=== PATIENT | male | born 1975 | race African-American/Black ===

== ENCOUNTER 2019-12-16 20:15 | Emergency (ER) | payer OTHER ==
[2019-12-16] MEDS ORDERED: KETOROLAC TROMETHAMINE 60 MG/2 ML SDV IM ONE (20:39)
--- NOTE | 2019-12-16 20:43 | ER Document Report ---
ED Medical Screen (RME) - General Chief Complaint: Hip Pain Stated Complaint: HIP PAIN Time Seen by Provider: 12/16/19 20:34 TRAVEL OUTSIDE OF THE [place] IN LAST 30 DAYS: No - HPI Notes: 12/16/19 20:41 HPI: 44-year-old male presenting to the emergency department complaining of left hip and groin pain following a vasectomy 4 days ago. Patient had no complications from this vasectomy denies penile or testicular pain denies difficulty with urination. Patient complains of pain into the left inguinal and left hip region especially with sitting down. States that movement does seem to make it slightly better. No fever I have greeted and performed a rapid initial assessment of this patient. A comprehensive ED assessment and evaluation of the patient, analysis of test results and completion of the medical decision making process will be conducted by additional ED providers PHYSICAL EXAMINATION: GENERAL: Well-appearing, well-nourished and in no acute distress. HEAD: Atraumatic, normocephalic. EYES: sclera anicteric, conjunctiva are normal. ENT: Moist mucous membranes. NECK: Normal range of motion LUNGS: Normal work of breathing HEART: 2+ radial pulses bilaterally ABD: limited by positioning for exam in triage. No significant reproducible tenderness in the left inguinal region no visible or palpable hernia EXTREMITIES: no pitting or edema. No cyanosis. No reproducible pain on palpati on of the left hip girdle NEUROLOGICAL: No focal neurological deficits. Moves all extremities spontaneously and on command. PSYCH: Normal mood, normal affect. SKIN: Warm, Dry, normal turgor, no rashes or lesions noted. Discussed with Dr. Toney Past Medical History - Social History Chew tobacco use (# tins/day): No Frequency of alcohol use: Rare Drug Abuse: Marijuana Physical Exam - Vital signs Vitals: Temp Pulse Resp BP Pulse Ox 97.6 F 74 16 111/72 98 12/16/19 20:28 12/16/19 20:28 12/16/19 20:12/16/19 20:12/16/19 20:28 Course - Vital Signs Vital signs: Temp Pulse Resp BP Pulse Ox 97.6 F 74 16 111/72 98 12/16/19 20:28 12/16/19 20:28 12/16/19 20:28 12/16/19 20:12/16/19 20:28
[2019-12-16 21:05] LABS: APPEARANCE,URINE CLEAR; BILIRUBIN,URINE NEGATIVE (NEGATIVE); COLOR,URINE YELLOW; GLUCOSE, URINE NEGATIVE (NEGATIVE); KETONES,URINE NEGATIVE (NEGATIVE); LEUKOCYTE ESTERASE,URINE NEGATIVE (NEGATIVE); NITRITE,URINE NEGATIVE (NEGATIVE); PROTEIN,URINE 30 mg/dL (NEGATIVE); URINE SPECIFIC GRAVITY 1.036
--- NOTE | 2019-12-16 22:51 | RADIOLOGY REPORT (SQ) ---
TESTICULAR ULTRASOUND: 12/16/2019 9:48 PM [facility] [employer] HISTORY: 44-year old patient with recent vasectomy, left inguinal hematoma. COMPARISON: None available TECHNIQUE: Multiple longitudinal and transverse sonographic images were obtained of the right and left testicle. Color and spectral doppler images were obtained of the testicular vasculature. FINDINGS: Both testicles appear homogenous without evidence of a mass. Bilateral varicoceles are seen. Punctate calcifications are seen at both testicles consistent with microlithiasis. There is trace fluid seen around both testicles. 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 The left testicle appears normal in size, and it measures 3.3 x 2.0 x 3.0 cm. The left testicle appears homogeneous in echotexture and demonstrates arterial blood flow within the testicle. The left epididymal head appears normal in size and does not appear hyperemic. No gross abnormality seen at the left inguinal canal. The right testicle appears normal in size, and it measures 4.4 x 2.4 x 3.2 cm. The right testicle appears homogeneous in echotexture and demonstrates good arterial blood flow within the testicle. The right epididymal head appears normal in size and does not appear hyperemic. There is a small epididymal head cyst or spermatocele measuring up to 2 mm. There is a small amount of free fluid seen around the right testicle. IMPRESSION: 1. No evidence is seen to suggest testicular torsion. 2. No intratesticular mass is seen. 3. There are small bilateral varicoceles present.
[2019-12-16 23:02] LABS: ABSOLUTE EOSINOPHILS # (AUTO) 0.1 10^3/uL (0.0-0.6); ABSOLUTE LYMPHOCYTES (AUTO) 1.9 10^3/uL (0.5-4.7); ABSOLUTE MONOCYTES (AUTO) 0.3 10^3/uL (0.1-1.4); ABSOLUTE NEUT (AUTO) 1.9 10^3/uL (1.7-8.2); BASOPHILS % (AUTO) 0.7 % (0-2); EOSINOPHILS % (AUTO) 2.8 % (0-6); HEMATOCRIT 33.7 % (37.9-51.0); HEMOGLOBIN 11.6 g/dL (13.5-17.0); LYMPHOCYTES % (AUTO) 44.4 % (13-45); MEAN CORPUSCULAR HEMOGLOBIN 33.1 pg (27.0-33.4); MEAN CORPUSCULAR HGB CONC 34.2 g/dL (32.0-36.0); MEAN CORPUSCULAR VOLUME 97 fl (80-97); MONOCYTES % (AUTO) 7.4 % (3-13); PLATELET COUNT 205 10^3/uL (150-450); RED BLOOD COUNT 3.49 10^6/uL (4.35-5.55); RED CELL DISTRIBUTION WIDTH 14.7 % (11.5-14.0); SEGMENTED NEUTROPHILS % (AUTO) 44.7 % (42-78); TOTAL CELLS COUNTED % (AUTO) 100 %; WHITE BLOOD COUNT 4.2 10^3/uL (4.0-10.5)
[2019-12-16 23:26] LABS: ALBUMIN 3.7 g/dL (3.5-5.0); ALKALINE PHOSPHATASE 42 U/L (38-126); ANION GAP 5 (5-19); ASPARTATE AMINO TRANSFERASE 44 U/L (17-59); BILIRUBIN,DIRECT 0.3 mg/dL (0.0-0.4); BILIRUBIN,TOTAL 0.3 mg/dL (0.2-1.3); BLOOD UREA NITROGEN 17 mg/dL (7-20); CALCIUM 8.7 mg/dL (8.4-10.2); CARBON DIOXIDE 32 mmol/L (22-30); CHLORIDE 106 mmol/L (98-107); GLUCOSE 81 mg/dL (75-110); POTASSIUM 4.6 mmol/L (3.6-5.0); TOTAL PROTEIN 6.5 g/dL (6.3-8.2)
--- NOTE | 2019-12-16 23:32 | RADIOLOGY REPORT (SQ) ---
EXAM DESCRIPTION: XR HIP 2 OR MORE VIEWS COMPLETED DATE/TME: 12/16/2019 22:37 CLINICAL HISTORY: 44 years, Male, left hip pain COMPARISON: None. NUMBER OF VIEWS: 2 TECHNIQUE: LIMITATIONS: None. FINDINGS: No acute displaced fracture of the left hip. Alignment is anatomic. Joint spaces within normal limits for age. Surrounding soft tissues are unremarkable IMPRESSION: No acute bony injury is seen to the left hip copyright 2011 [employer]- All Rights Reserved
[2019-12-16 23:40] LABS: ERYTHROCYTE SEDIMENTATION RATE 10 mm/hr (0-15)
[2019-12-17] MEDS ORDERED: HYDROCODONE/ACETAMINOPHEN 5-325 MG TABLET PO ONE (01:02)
[2019-12-17] MEDS ORDERED: HYDROCODONE/ACETAMINOPHEN 5-325 MG (6 TAB/ER DISP) PO PRN (01:02)
[2019-12-17] MEDS ORDERED: PREDNISONE 20 MG TABLET PO ONE (01:02)
--- NOTE | 2019-12-17 01:07 | ER Document Report ---
Entered by NADEGE PADILLA SCRIBE 12/16/19 2221 Acting as scribe for:DOUG DOOLEY IV, MD ED General - General Chief Complaint: Hip Pain Stated Complaint: HIP PAIN Time Seen by Provider: 12/16/19 20:34 Primary Care Provider: ANNI,IRASEMA [Primary Care Provider] - Follow up as needed Mode of Arrival: Ambulatory Information source: Patient Notes: This 44 year old male patient with no significant past medical history presents to the ED today with complaints of left hip pain that started x1.5 days ago. Patient states that the pain comes and goes every x15 minutes and is worse when he is sitting up at a 90 degree angle and that it "feels like an inner pain...in my pocket almost at the ballpoint of the hip". Patient states that the shot of medication he received here provided mild relief. Patient denies any radiation down the back of the legs or to the back. Patient denies history of left hip pain in the past, but states that he has had right hip discomfort x2 times/year for the past couple of years. Patient states that his job requires heavy lifting everyday. Patient reports that he had a vasectomy x3 days ago. Patient denies testicular pain, penile pain, dysuria, fever, chills, or history of sickle cell anemia. TRAVEL OUTSIDE OF THE [place] IN LAST 30 DAYS: No - Related Data Allergies/Adverse Reactions: No Known Allergies Allergy (Unverified 12/16/19 21:03) Past Medical History - General Information source: Patient - Social History Smoking Status: Current Every Day Smoker Cigarette use (# per day): Yes Chew tobacco use (# tins/day): No Smoking Education Provided: No Frequency of alcohol use: Rare Drug Abuse: Marijuana Family History: Reviewed & Not Pertinent Patient has suicidal ideation: No Patient has homicidal ideation: No Review of Systems - Review of Systems Constitutional: See HPI. denies: Chills, Fever EENT: No symptoms reported Cardiovascular: No symptoms reported Respiratory: No symptoms reported Gastrointestinal: No symptoms reported Genitourinary: See HPI. denies: Dysuria Male Genitourinary: See HPI, Other - No penile pain.. denies: Testicular pain Musculoskeletal: See HPI, Joint pain - Left hip Skin: No symptoms reported Hematologic/Lymphatic: No symptoms reported Neurological/Psychological: No symptoms reported -: Yes All other systems reviewed and negative Physical Exam - Vital signs Vitals: Temp Pulse Resp BP Pulse Ox 97.6 F 74 16 111/72 98 12/16/19 20:28 12/16/19 20:28 12/16/19 20:28 12/16/19 20:28 12/16/19 20:28 Interpretation: Normal - General General appearance: Appears well, Alert - HEENT Head: Normocephalic, Atraumatic Eyes: Normal Pupils: PERRL - Respiratory Respiratory status: No respiratory distress Chest status: Nontender Breath sounds: Normal Chest palpation: Normal - Cardiovascular Rhythm: Regular Heart sounds: Normal auscultation Murmur: No Friction rub: No Gallop: None auscultated - Abdominal Inspection: Normal Distension: No distension Bowel sounds: Normal Tenderness: Nontender - Abdomen soft Organomegaly: No organomegaly - Genitourinary Tenderness: Nontender Scrotum: Normal, Other - No ecchymosis.. No: Swelling, Redness Notes: Surgical incision sites post-vasectomy noted. Well healed. - Back Back: Normal, Nontender - Extremities General upper extremity: Normal inspection General lower extremity: Normal inspection, Other - 2+ posterior tibialis pulses bilaterally. Negative straight leg raise bilaterally. Hip: Other - No pulsatile masses. No femoral bruits. Full passive ROM of hip joint that does not reproduce the pain. Patient reports pain when he goes from a supine position to sittting. - Neurological Neuro grossly intact: Yes - Psychological Associated symptoms: Normal affect, Normal mood - Skin Skin Temperature: Warm Skin Moisture: Dry Skin Color: Normal Course - Re-evaluation Re-evalutation: 12/17/19 01:03 Results of ED MSE discussed with patient. All questions were answered prior to discharge. Emergency signs and symptoms, reasons to return to the emergency department discussed with patient. - Vital Signs Vital signs: Temp Pulse Resp BP Pulse Ox 97.5 F 55 L 16 141/86 H 100 12/17/19 01:31 12/17/19 01:31 12/17/19 01:31 12/17/19 01:31 12/17/19 01:31 - Laboratory Result Diagrams: 12/16/19 22:55 12/16/19 22:55 Laboratory results interpreted by me: 12/16/19 12/16/19 12/16/19 20:48 22:55 22:55 RBC 3.49 L Hgb 11.6 L Hct 33.7 L RDW 14.7 H Carbon Dioxide 32 H Urine Protein 30 H Urine Urobilinogen 2.0 H Discharge - Discharge Clinical Impression: Left hip pain Condition: Good Disposition: HOME, SELF-CARE Additional Instructions: Return to the Emergency Department without delay if any worse. HOME CARE INSTRUCTIONS & INFORMATION: Thank you for choosing us for your medical needs. We hope you're satisfied with the care you received. After you leave, you must properly care for your problem and, at the same time, observe its progress. Any condition can change. Some illnesses can change rapidly over hours or days. If your condition worsens, return to the Emergency Department or see your physician promptly. ABOUT YOUR X-RAYS AND EKG'S: If you had an EKG or X-rays taken, they have been read by the Emergency Physician. The X-rays and EKG's will also be read by a Radiologist or Restaurant Lead within 24 hours. If discrepancies are noted, you will be notified by telephone. Please be certain the ED has a correct telephone number & address where you can be reached. Also, realize that some fractures or abnormalities do not show up on initial X-rays. If your symptoms continue, see your physician. ABOUT YOUR LABORATORY TEST: If you had laboratory tests, the results have been reviewed by the Emergency Physician. Some test results (for example cultures) may not be available for several days. You will be contacted if any test result shows you need additional treatment. Please be certain the ED has a correct telephone number and address where you can be reached. ABOUT YOUR MEDICATIONS: You will receive instructions on how to take your medicine on the prescription label you receive. Additional information may be provided by the Pharmacy. If you have questions afterwards, call the ED for clarification or further instructions. Some prescribed medications may cause dr owsiness. Do not perform tasks such as driving a car or operating machinery without consulting your Pharmacist. If you feel you need a refill of pain medication, your condition will need re-evaluation. Please do not call for a refill of any medication. ABOUT YOUR SIGNATURE: Signature of this document acknowledges to followin. Understanding that you received emergency treatment and that you may be released before al medical problems are known or treated. Please be certain the ED has a correct phone number & address where you can be reached. 2. Acknowledgement that you will arrange for follow-up care as recommended. 3. Authorization for the Emergency Physician to provide information to your follow-up Physician in order to maximize your care. AT ANY TIME, IF YOUR SYMPTOMS CHANGE SIGNIFICANTLY OR WORSEN OR YOU DEVELOP NEW SYMPTOMS, RETURN TO THE EMERGENCY DEPARTMENT IMMEDIATELY FOR RE-EVALUATION. OUR GOAL IS TO PROVIDE EXCELLENT MEDICAL CARE! WE HOPE THAT WE HAVE MET YOUR EXPECTATIONS DURING YOUR EMERGENCY DEPARTMENT VISIT AND THAT YOU FEEL YOU HAVE RECEIVED EXCELLENT CARE! Prescriptions: Prednisone [Deltasone 20 mg Tablet] 3 tab PO DAILY 4 Days #12 tablet Referrals: [facility] [Primary [facility] Provider] - Follow up as needed I personally performed the services described in the documentation, reviewed and edited the documentation which was dictated to the scribe in my presence, and it accurately records my words and actions.
[2019-12-17 01:35] VITALS: BP 141/86
== END 2019-12-17 01:31 | disposition home or self-care (01) ==
LOC: ER 20:15
DX: M25.552 Pain in left hip (principal); Z98.52 Vasectomy status; F17.210 Nicotine dependence, cigarettes, uncomplicated; F12.10 Cannabis abuse, uncomplicated
CPT/HCPCS: 99284; 96372; 36415; 85025; 85652; 86140; 81001; 80053; 73502; 76870; 93976; J1885; J7512